=== PATIENT | male | born 1970 | race Caucasian/White ===

== ENCOUNTER 2016-04-16 11:28 | Day surgery (SDC) | payer BC, MEDICAID ==
[2016-04-16] MEDS ORDERED: NALOXONE HCL INJ/PF 0.4 MG/1 ML SDV ONE (12:02)
[2016-04-16] MEDS ORDERED: DIPHENHYDRAMINE HCL 50 MG/ML VIAL ONE (12:02)
[2016-04-16] MEDS ORDERED: PROMETHAZINE HCL INJ 25 MG/1 ML VIAL ONE (12:02)
[2016-04-16] MEDS ORDERED: ONDANSETRON HCL INJ/PF 4 MG/2 ML SDV ONE (12:02)
[2016-04-16] MEDS ORDERED: GLUCAGON,HUMAN RECOMB 1 MG INJ ONE (12:03)
[2016-04-16] MEDS ORDERED: FLUMAZENIL INJ 0.5 MG/5 ML VIAL IV ONE (12:03)
[2016-04-16] MEDS ORDERED: MIDAZOLAM 2 MG/2 ML INJ ONE (12:03)
[2016-04-16] MEDS ORDERED: EPINEPHRINE INJ 1 MG/10 ML DISP.SYRIN ONE (12:03)
[2016-04-16] MEDS: MIDAZOLAM 2 MG/2 ML INJ ONE ×2 (12:20→12:25)
[2016-04-16] MEDS: FENTANYL CITRATE INJ/PF 100 MCG/2 ML AMPUL ONE ×2 (12:22→12:24)
--- NOTE | 2016-04-16 12:33 | Operative Report ---
Operative Report DATE OF SURGERY: 04/16/16 Operative Report: The risks benefits and alternatives of the procedure explained to the patient in detail and informed consent is obtained that GIF Olympus video scope was inserted into the patient's mouth and hypopharynx the esophagus is identified intubated and insufflated the scope was then advanced through the esophagus stomach and duodenum retroflexion maneuver is done the esophagus stomach and first and second portions of the duodenum examined PREOPERATIVE DIAGNOSIS: Gastroesophageal reflux disease, halitosis POSTOPERATIVE DIAGNOSIS: Gastritis, duodenitis OPERATION: EGD with biopsy SURGEON: JUNO CABRERA ANESTHESIA: Moderate Sedation - 4 mg of Versed, 100 g of fentanyl. TISSUE REMOVED OR ALTERED: Gastric specimens to rule out for Helicobacter pylori. COMPLICATIONS: None. ESTIMATED BLOOD LOSS: none. INTRAOPERATIVE FINDINGS: Normal esophagus. Gastritis, duodenitis PROCEDURE: Patient tolerated the procedure well. No immediate postprocedure complications are noted. Patient discharged in good condition. Discharge date 04/16/2016. Discharge diet: Regular. Discharge activity: Regular. We'll await on biopsies. Patient does have a 2-3 week follow-up to discuss findings. Patient is instructed to go to emergency room I'll call the office if there are any postprocedure issues.
[2016-04-16 13:53] VITALS: BP 124/79
== END 2016-04-16 13:50 | disposition home or self-care (01) ==
LOC: END 11:28
PROVIDERS: ATTEND Internal Medicine Gastroenterology
PROC: 0DB68ZX Excision of Stomach, Via Natural or Artificial Opening Endoscopic, Diagnostic (ICD-10-PCS; principal; 2016-04-16 12:00)
DX: K21.9 Gastro-esophageal reflux disease without esophagitis (principal); K29.50 Unspecified chronic gastritis without bleeding; K29.80 Duodenitis without bleeding; E11.9 Type 2 diabetes mellitus without complications; E78.2 Mixed hyperlipidemia; Z79.4 Long term (current) use of insulin
CPT/HCPCS: 43239; 82962; 88305 ×2; J2250; J3010; J0171; J1200; J1610; J2310; J2405; J2550; J3490

== ENCOUNTER → 2017-06-07 | Outpatient (CLI) | payer BC ==
--- NOTE | 2017-06-07 12:58 | RADIOLOGY REPORT (SQ) ---
EXAM DESCRIPTION: OS CALCIS/HEEL LEFT COMPLETED DATE/TIME: 06/07/2017 10:41 am REASON FOR STUDY: PAIN IN LEFT FOOT M79.672 PAIN IN LEFT FOOT COMPARISON: None. NUMBER OF VIEWS: Two views. TECHNIQUE: Plantar and lateral images acquired of the left calcaneous. LIMITATIONS: None. FINDINGS: MINERALIZATION: Normal. BONES: No acute fracture or dislocation. No worrisome bone lesions. No significant osteophytes. JOINTS: No erosions. No harley-articular osteopenia. No chondrocalcinosis. SOFT TISSUES: No swelling. No calcifications. OTHER: No other significant finding. IMPRESSION: NEGATIVE STUDY OF THE LEFT CALCANEOUS. NO ACUTE POST-TRAUMATIC CHANGES. NO EXPLANATION FOR PAIN. TECHNICAL DOCUMENTATION: JOB ID: [id number] [employer]- All Rights Reserved Reading location - IP/workstation name: [email or web address]
== END ==
LOC: OD 10:26
PROVIDERS: ATTEND Nurse Practitioner
DX: M79.672 Pain in left foot (principal)

== ENCOUNTER 2018-09-20 10:24 | Emergency (ER) | payer BC ==
--- NOTE | 2018-09-20 11:11 | ER Document Report ---
ED Medical Screen (RME) - General Chief Complaint: High Blood Sugar Stated Complaint: BLOOD SUGAR PROBLEM Time Seen by Provider: 09/20/18 11:07 Primary Care Provider: TEJA LEDESMA NP-C [Primary Care Provider] - Follow up as needed TRAVEL OUTSIDE OF THE [place] IN LAST 30 DAYS: No - HPI Notes: 09/20/18 11:10 Patient is a 48-year-old male with a history of insulin-dependent diabetes and coronary artery disease with one stent placement in June who presents from cardiac rehab for elevated glucose on Accu-Chek. Patient states that they checked her sugar and it was in the 400s today wanted him sent here for evaluation. Patient states that he feels well and has no concerns or complaints aside from some mild fatigue. He is eating and drinking without difficulties. He is urinating normally. No recent illness. Denies any confusion or disorientation. Denies MADRIGAL, fever, neck pain, URI, CP, SOB, Abd pain, n/v/d, dysuria, back pain, or rash. I have treated and performed a rapid initial assessment of this patient. A comprehensive ED assessment and evaluation of the patient, analysis of test results and completion of medical decision making process will be conducted by additional ED providers. PHYSICAL EXAMINATION: GENERAL: Well-appearing, well-nourished and in no acute distress. A&Ox4. Answers questions appropriately. LUNGS: Breath sounds clear to auscultation bilaterally and equal. No wheezes rales or rhonchi. HEART: Regular rate and rhythm without murmurs, rubs, gallops. ABDOMEN: Soft, nondistended abdomen. No guarding, no rebound. Normal bowel s ounds present. No CVA tenderness bilaterally. Grossly nontender (cannot elicit thorough abd exam w/o bed, however). - Related Data Allergies/Adverse Reactions: No Known Allergies Allergy (Verified 09/20/18 11:04) Past Medical History - Social History Frequency of alcohol use: None Drug Abuse: None - Past Medical History Cardiac Medical History: Reports: Hx Hypercholesterolemia, Hx Hypertension Denies: Hx Coronary Artery Disease, Hx Heart Attack Pulmonary Medical History: Denies: Hx Asthma, Hx Bronchitis, Hx COPD, Hx Pneumonia Neurological Medical History: Denies: Hx Cerebrovascular Accident, Hx Seizures Endocrine Medical History: Reports: Hx Diabetes Mellitus Type 1 Renal/ Medical History: Denies: Hx Peritoneal Dialysis Musculoskeltal Medical History: Reports Hx Arthritis Past Surgical History: Reports: Hx Cardiac Catheterization - x1 - Immunizations Hx Diphtheria, Pertussis, Tetanus Vaccination: Yes Physical Exam - Vital signs Vitals: Temp Pulse Resp BP Pulse Ox 98 F 51 L 18 121/65 98 09/20/18 10:41 09/20/18 10:41 09/20/18 10:41 09/20/18 10:41 09/20/18 10:41 Course - Vital Signs Vital signs: Temp Pulse Resp BP Pulse Ox 98 F 51 L 18 121/65 98 09/20/18 10:41 09/20/18 10:41 09/20/18 10:41 09/20/18 10:41 09/20/18 10:41 Doctor's Discharge - Discharge Referrals: TEJA LEDESMA NP-C [Primary Care Provider] - Follow up as needed
[2018-09-20 11:36] LABS: ABSOLUTE BASOPHILS # (AUTO) 0.1 10^3/uL (0.0-0.2); ABSOLUTE EOSINOPHILS # (AUTO) 0.2 10^3/uL (0.0-0.6); ABSOLUTE LYMPHOCYTES (AUTO) 2.1 10^3/uL (0.5-4.7); ABSOLUTE MONOCYTES (AUTO) 0.5 10^3/uL (0.1-1.4); ABSOLUTE NEUT (AUTO) 5.8 10^3/uL (1.7-8.2); BASOPHILS % (AUTO) 0.6 % (0-2); EOSINOPHILS % (AUTO) 2.5 % (0-6); HEMOGLOBIN 15.7 g/dL (13.5-17.0); LYMPHOCYTES % (AUTO) 24.5 % (13-45); MEAN CORPUSCULAR HEMOGLOBIN 30.7 pg (27.0-33.4); MEAN CORPUSCULAR HGB CONC 35.6 g/dL (32.0-36.0); MEAN CORPUSCULAR VOLUME 86 fl (80-97); MONOCYTES % (AUTO) 5.3 % (3-13); PLATELET COUNT 203 10^3/uL (150-450); RED BLOOD COUNT 5.09 10^6/uL (4.35-5.55); RED CELL DISTRIBUTION WIDTH 13.4 % (11.5-14.0); SEGMENTED NEUTROPHILS % (AUTO) 67.1 % (42-78); TOTAL CELLS COUNTED % (AUTO) 100 %; WHITE BLOOD COUNT 8.7 10^3/uL (4.0-10.5)
[2018-09-20 11:51] LABS: APPEARANCE,URINE CLEAR; BILIRUBIN,URINE NEGATIVE (NEGATIVE); COLOR,URINE STRAW; GLUCOSE, URINE >=500 mg/dL (NEGATIVE); KETONES,URINE NEGATIVE (NEGATIVE); LEUKOCYTE ESTERASE,URINE NEGATIVE (NEGATIVE); NITRITE,URINE NEGATIVE (NEGATIVE); PROTEIN,URINE NEGATIVE (NEGATIVE); UROBILINOGEN,URINE NEGATIVE mg/dL (<2.0)
[2018-09-20 11:58] LABS: ANION GAP 14 (5-19); BLOOD UREA NITROGEN 16 mg/dL (7-20); CARBON DIOXIDE 30 mmol/L (22-30); CHLORIDE 97 mmol/L (98-107); GLUCOSE 356 mg/dL (75-110); POTASSIUM 4.3 mmol/L (3.6-5.0); SODIUM 140.5 mmol/L (137-145)
--- NOTE | 2018-09-20 12:06 | ER Document Report ---
HPI - HPI Time Seen by Provider: 09/20/18 11:07 Pain Level: Denies Notes: Patient is a 48-year-old male with a history of insulin-dependent diabetes and coronary artery disease with one stent placement in June who presents from cardiac rehab for elevated glucose on Accu-Chek. Patient states that they checked her sugar and it was in the 400s today wanted him sent here for evaluation. Patient states that he feels well and has no concerns or complaints aside from some mild fatigue. He is eating and drinking without difficulties. He is urinating normally. No recent illness. Denies any confusion or disorientation. Denies MADRIGAL, fever, neck pain, URI, CP, SOB, Abd pain, n/v/d, dysuria, back pain, or rash. - ROS Systems Reviewed and Negative: Yes All other systems reviewed and negative - DERM Skin Color: Normal Past Medical History - Social History Smoking Status: Never Smoker Frequency of alcohol use: None Drug Abuse: None Family History: Reviewed & Not Pertinent Patient has suicidal ideation: No Patient has homicidal ideation: No - Past Medical History Cardiac Medical History: Reports: Hx Hypercholesterolemia, Hx Hypertension Denies: Hx Coronary Artery Disease, Hx Heart Attack Pulmonary Medical History: Denies: Hx Asthma, Hx Bronchitis, Hx COPD, Hx Pneumonia Neurological Medical History: Denies: Hx Cerebrovascular Accident, Hx Seizures Endocrine Medical History: Reports: Hx Diabetes Mellitus Type 1 Renal/ Medical History: Denies: Hx Peritoneal Dialysis Musculoskeletal Medical History: Reports Hx Arthritis Past Surgical History: Reports: Hx Cardiac Catheterization - x1 - Immunizations Hx Diphtheria, Pertussis, Tetanus Vaccination: Yes Vertical Provider Document - CONSTITUTIONAL Agree With Documented VS: Yes Notes: PHYSICAL EXAMINATION: GENERAL: Well-appearing, well-nourished and in no acute distress. LUNGS: Breath sounds clear to auscultation bilaterally and equal. No wheezes rales or rhonchi. HEART: Regular rate and rhythm without murmurs, rubs, gallops. ABDOMEN: Soft, nontender, nondistended abdomen. No guarding, no rebound. Peg l bowel sounds present. No CVA tenderness bilaterally. Musculoskeletal: FROM to passive/active. Strength 5+/5. Extremities: No cyanosis, clubbing, or edema b/l. Peripheral pulses 2+. Capillary refill less than 3 seconds. NEUROLOGICAL: Cranial nerves grossly intact. Normal speech, normal gait. Normal sensory, motor exams PSYCH: Normal mood, normal affect. SKIN: Warm, Dry, normal turgor, no rashes or lesions noted. - INFECTION CONTROL TRAVEL OUTSIDE OF THE [place] IN LAST 30 DAYS: No Course - Re-evaluation Re-evalutation: 09/20/18 12:04 Patient is an afebrile, well-hydrated, 48-year-old male who presents with elevated blood glucose. Vitals are acceptable without significant tachycardia, tachypnea, or hypoxia. PE is otherwise unremarkable. Patient is nontoxic- appearing and is tolerating p.o. without difficulty. His abdomen is soft nontender. Patient is otherwise a symptomatically is feeling well and wants to go home. See lab results. Glucose at 356, and patient states that his normal is around 200. He has insulin and is able to Accu-Chek at home. Low suspicion for any acute abdomen, DKA, HHS, sepsis, meningitis, severe dehydration, respiratory compromise, severe anemia, or other systemic emergent condition at this time. Patient is aware that condition can change from initial presentation and he needs to monitor symptoms closely and seek medical attention with any acute changes. Recheck with your PCM in 2 to 3 days. Return to the ED with any other worsening/concerning symptoms. Patient is in agreement. - Vital Signs Vital signs: Temp Pulse Resp BP Pulse Ox 98 F 51 L 18 121/65 98 09/20/18 10:41 09/20/18 10:41 09/20/18 10:41 09/20/18 10:41 09/20/18 10:41 - Laboratory Result Diagrams: 09/20/18 11:20 09/20/18 11:20 Laboratory results interpreted by me: 09/20/18 09/20/18 09/20/18 11:20 11:20 11:20 Chloride 97 L Glucose 356 H Hemoglobin A1c % 10.2 H Urine Glucose (UA) >=500 H Discharge - Discharge Clinical Impression: Blood glucose elevated Condition: Stable Disposition: HOME, SELF-CARE Additional Instructions: Maintain adequate fluid and food intake Take home medications as directed Low carb/sugar diet Exercise regularly Monitor blood glucose daily and keep a log Monitor symptoms for any acute changes Recheck with your PCM in 2-3 days Consider a follow-up with endocrinology Return to the ED with any worsening symptoms and/or development of fever, headache, chest pain, palpitations, syncope, shortness of breath, trouble yeimi athing, abdominal pain, n/v/d, blood in stool/urine, loss of control of bowel/bladder, urinary retention, muscle weakness/paralysis, numbness/tingling, or other worsening symptoms that are concerning to you. Referrals: TEJA LEDESMA NP-C [Primary Care Provider] - 09/23/18
[2018-09-20 12:24] VITALS: BP 101/64
== END 2018-09-20 12:30 | disposition home or self-care (01) ==
LOC: ER 10:24
DX: E10.9 Type 1 diabetes mellitus without complications (principal); E78.00 Pure hypercholesterolemia, unspecified; I10 Essential (primary) hypertension; Z79.4 Long term (current) use of insulin
CPT/HCPCS: 36415; 80048; 81001; 82962; 83036; 85025; 99283

== ENCOUNTER 2018-12-28 06:40 | Day surgery (SDC) | payer BC ==
[2018-12-28] MEDS ORDERED: PROPOFOL INJ 200 MG/20 ML VIAL IV ONE (07:27)
[2018-12-28 09:04] VITALS: BP 108/64
--- NOTE | 2018-12-28 12:55 | Operative Report ---
Operative Report DATE OF SURGERY: 12/28/18 Operative Report: The risks, benefits and alternatives of the procedure including the risk of bleeding, perforation requiring surgery have been explained to the patient in detail and informed consent has been obtained. The patient is taken back to the endoscopy suite and placed in a left, lateral decubital position. Timeout was called. Propofol medication is administered. Rectal examination is done which did not reveal any masses, tears or fissures. An Olympus videoscope was introduced into the patient's rectum. The scope was then carefully advanced all the way to the cecum. The cecum was identified by the usual anatomical landmarks including the ileocecal valve as well as the appendiceal office. Photodocumentation is obtained. The scope was then sequentially pulled back via the various segments of the colon including the ascending colon, hepatic flexure, transverse colon, splenic flexure, descending colon and finally into the rectosigmoid portions of the colon. Retroflexion maneuver is performed. PREOPERATIVE DIAGNOSIS: Change of bowel habits POSTOPERATIVE DIAGNOSIS: Right side colon Inflammation status post biopsy OPERATION: Colonoscopy with biopsy SURGEON: JUNO CABRERA ANESTHESIA: LMAC TISSUE REMOVED OR ALTERED: As noted above. COMPLICATIONS: None. ESTIMATED BLOOD LOSS: None. INTRAOPERATIVE FINDINGS: As noted above. PROCEDURE: Patient tolerated the procedure well. No immediate postprocedure complications are noted. Patient is discharged in good condition. Discharge date 12/28/2018. Discharge diet: Regular. Discharge activity: Regular. 2 to 3-week follow-up to discuss findings. Patient is instructed to call the office or proceed to the emergency room should there be any further problems or questions. Wait on the pathology.
== END 2018-12-28 09:05 | disposition home or self-care (01) ==
LOC: END 06:40
PROVIDERS: ATTEND Internal Medicine Gastroenterology
DX: K52.9 Noninfective gastroenteritis and colitis, unspecified (principal); E11.9 Type 2 diabetes mellitus without complications; Z79.4 Long term (current) use of insulin; I25.2 Old myocardial infarction; K21.9 Gastro-esophageal reflux disease without esophagitis
CPT/HCPCS: 45380; 82962; 88305 ×2; 00811; J2704; 811